=== PATIENT | female | born 1950 | race Two or more races ===

== ENCOUNTER 2025-02-10 13:02 | Emergency (ER) | payer OTHER ==
[~2025-02-10] VITALS: Ht 170.2 cm; Wt 86.0 kg
--- NOTE | 2025-02-10 13:32 | ED.PDOC ---
HPI Comments 74 y.o female with PMHx of FL x2, CHF, HTN, HLD, CVA and Parkinson's, presents to the ED via EMS for a chief complaint of chest pain x last night. Patient reports pain is localized at the center of her chest, radiates to her back and left arm, described as a pressure pain that is constant and rates it a 4/10 on the pain scale. EMS reports giving 324mg ASA en route with no pain relief noted, states holding NTG as patient's BP was on the lower end at 103 systolic. Patient reports pain presented at rest when attempting to go to sleep. Patient denies any nausea, vomiting, diarrhea, fever, or chills. Patient has chronic leg swelling, was seen for this yesterday at [facility] and had blood clot dx r/o. Patient is on Lasix and compliant with the rest of her medication. EMS also noted patient has had a pacemaker replaced 4 times as it kept dislodging. Per patient, pain at this time feels similar to previous FL but is concerned it is her pacemaker malfunction once again. She denies any substance, alcohol or tobacco use. Recent lower back fracture diagnosed one week ago s/p mechanical fall. No new onset of numbness to lower back/extremities. Time Seen by MD: 13:03 Reviewed Notes: Nurses Notes, Inventory Manager Notes, Medications, Allergies Allergies: Coded Allergies: Penicillins (Verified Allergy, Unknown, 02/10/25) Information Source: Patient, Emergency Med Personnel Mode of Arrival: EMS Severity: Moderate Timing: Hours Duration: Since onset Prehospital treatment: 12 Lead EKG, ASA (324mg ), Drawing In Hand Location: Substernal Radiation: Back, Arm (L) Quality: Pressure Onset: At Rest Cardiac Risk Factors: Family History, Hyperlipidemia, HTN PE Risk Factors: None History of: Similar pain in past, [place] Modifying Factors: Nothing Associated Signs and Symptoms: Back Pain Past Medical History PAST MEDICAL HISTORY: CHF, CVA, High Lipids, HTN, FL (2) Past Medical History (Other): Parkinson's and lower back fractures (s/p fall one week ago) Surgical History: 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 History Family History Family History: Family hx of DM, Family hx of heart lex Social History Smoker: Non-Smoker Alcohol: Denies ETOH Use Drugs: Denies Drug Use Lives In: Home Constitutional: denies: chills, diaphoresis, fatigue, fever, malaise, sweats, weakness, others EENTM: denies: blurred vision, double vision, ear bleeding, ear discharge, ear drainage, ear pain, ear ringing, eye pain, eye redness, hearing loss, mouth pain, mouth swelling, nasal discharge, nose bleeding, nose congestion, nose pain, photophobia, tearing, throat pain, throat swelling, voice changes, others Respiratory: reports: cough; denies: hemoptysis, orthopnea, SOB at rest, shortness of breath, SOB with excertion, stridor, wheezing, others Cardiovascular: reports: chest pain, lightheadedness; denies: dizzy spells, diaphoresis, Dyspnea on exertion, edema, irregular heart beat, left arm pain, palpitations, PND, syncope, others Gastrointestinal: denies: abdomen distended, abdominal pain, blood streaked bowels, constipated, diarrhea, dysphagia, difficulty swallowing, hematemesis, melena, nausea, poor appetite, poor fluid intake, rectal bleeding, rectal pain, vomiting, others Genitourinary: denies: abnormal vagina bleeding, burning, dyspareunia, dysuria, flank pain, frequency, hematuria, incontinence, pain, , vagina discharge, urgency, others Neurological: denies: dizziness, fainting, headache, left sided numbness, left sided weakness, numbness, paresthesia, pre-existing deficit, right sided numbness, right sided weakness, seizure, speech problems, tingling, tremors, weakness, others Musculoskeletal: reports: back pain; denies: gout, joint pain, joint swelling, muscle pain, muscle stiffness, neck pain, others Integumetry: denies: bruises, change in color, change in hair/nails, dryness, laceration, lesions, lumps, rash, wounds, others Allergic/Immunocompromised: denies: Difficulty Healing, Frequent Infections, Hives, Itching, others Hematologic/Lymphatic: denies: anemia, blood clots, easy bleeding, easy bruising, swollen glands, others Endocrine: denies: excessive hunger, excessive sweating, excessive thirst, excessive urination, flushing, intolerance to cold, intolerance to heat, unexplained weight gain, unexplained weight loss, others Psychiatric: denies: anxiety, bipolar disorder, depression, hopeless, panic disorder, schizophrenia, sleepless, suicidal, others All Other Systems: Reviewed and Negative Physical Exam General Appearance: Moderate Distress HEENT: Normal ENT Inspection, Pharynx Normal, TMs Normal Neck: Full Range of Motion, Non-Tender, Normal, Normal Inspection Respiratory: Chest Non-Tender, Lungs Clear, No Accessory Muscle Use, No Respiratory Distress, Normal Breath Sounds Cardiovascular: No Edema, No JVD, No Murmur, No Gallop, Normal Peripheral Pulses, Regular Rate/Rhythm Breast Exam: Deferred Gastrointestinal: No Organomegaly, Non Tender, No Pulsatile Mass, Normal Bowel Sounds, Soft Genitalia: Deferred Pelvic: Deferred Rectal: Deferred Extremities: No calf tenderness, Normal capillary refill, Normal inspection, Normal range of motion, Non-tender, No pedal edema Musculoskeletal : Apperance: Normal Neurologic: Alert, gamma ray operator II-XII nml as Tested, No Motor Deficits, Normal Affect, Normal Mood, No Sensory Deficits Cerebellar Function: Normal Reflexes: Normal Skin: Dry, Normal Color, Warm Lymphatic: No Adenopathy EKG EKG : Pulse Rate (adult): 69 [place]: Normal Cardiac Rhythm: NSR Was a procedure done? Was a procedure done?: No CP Differential Dx Differential Diagnosis: Angina, Anxiety / Panic Attack, Electrolyte Disorder, Pacemaker Malfunction Differential Diagnosis: Angina, Chest Wall Pain, Costochondritis, Myocardial I nfarction, Pericarditis X-Ray, Labs, Meds, VS Vital Signs Date Time Temp Pulse Resp B/P (MAP) Pulse Ox O2 Delivery O2 Flow Rate FiO2 02/10/25 16:57 98.9 73 18 152/83 (106) 100 98.9 02/10/25 16:57 73 18 100 Room Air* 0 21 02/10/25 14:10 66 02/10/25 14:04 63 18 135/61 02/10/25 13:33 98.4 78 17 113/62 (79) 96 98.4 02/10/25 13:32 69 02/10/25 13:09 69 Lab Test 02/10/25 15:40 02/10/25 14:35 Range/Units Troponin I High Sensitivity 10 11 </=34 ng/L White Blood Count 8.1 4.4-10.8 10^3/uL Red Blood Count 4.59 4.0-5.20 10^6/uL Hemoglobin 13.9 12.2-16.2 g/dL Hematocrit 42.2 36.0-46.0 % Mean Corpuscular Volume 92.0 80.0-100.0 fL Mean Corpuscular Hemoglobin 30.3 28.0-32.0 pg Mean Corpuscular Hemoglobin Concent 32.9 32.0-36.0 g/dL Red Cell Distribution Width 14.7 H 11.8-14.3 % Platelet Count 191 140-450 10^3/uL Mean Platelet Volume 9.8 6.9-10.8 fL Neutrophils (%) (Auto) 56.3 37.0-80.0 % Lymphocytes (%) (Auto) 30.4 10.0-50.0 % Monocytes (%) (Auto) 9.2 0.0-12.0 % Eosinophils (%) (Auto) 2.8 0.0-7.0 % Basophils (%) (Auto) 1.3 0.0-2.0 % Neutrophils # (Auto) 4.6 1.6-8.6 10 ^3/uL Lymphocytes # (Auto) 2.5 0.4-5.4 10 ^3/uL Monocytes # (Auto) 0.7 0-1.3 10 ^3/uL Eosinophils # (Auto) 0.2 0-0.8 10 ^3/uL Basophils # (Auto) 0.1 0-0.2 10 ^3/uL Nucleated Red Blood Cells 0.0 % Sodium Level 145 136-145 mmol/L Potassium Level 3.5 3.5-5.1 mmol/L Chloride Level 108 H 98-107 mmol/L Carbon Dioxide Level 32 H 20-31 mmol/L Anion Gap 5 5-15 Blood Urea Nitrogen 11 9-23 mg/dL Creatinine 0.93 0.550-1.02 mg/dL Glomerular Filtration Rate Calc 65 >90 mL/min BUN/Creatinine Ratio 11.8 10.0-20.0 Serum Glucose 90 74-106 mg/dL Calcium Level 9.7 8.7-10.4 mg/dL B-Type Natriuretic Peptide 117.71 0-100 pg/mL Current Medications Medications (Trade) Dose Ordered Sig/Sandy Route Start Time Stop Time Status Last Admin Morphine Sulfate 2 mg ONCE ONCE IV 02/10/25 13:15 02/10/25 13:16 DC 02/10/25 14:04 Ondansetron HCl (Zofran) 4 mg ONCE ONCE IV 02/10/25 13:15 02/10/25 13:16 DC 02/10/25 14:03 Acetaminophen/ Hydrocodone Bitart ([place] 10/325MG Tab) 1 tab ONCE ONCE PO 02/10/25 17:15 02/10/25 17:16 DC 02/10/25 17:07 IV Hep-Lock was established The patient was given morphine 2 mg IV push for the pain The patient was given Zofran 4 mg IV push for the nausea The patient was also given [place] now for the pain The patient's CBC is within normal limits. The chemistry panel shows a CO2 of 32 but otherwise within normal limits The BNP is within normal limits At this time, the chest x-ray shows: There is no sign of any abnormalities At this time, we did contact [facility] and they did give us authorization for treatment in the emergency department's The authorization #[id number] A cardiology consult will be obtained Initially we were going to transfer the patient but the patient is now having increased chest pain We are repeating the EKG. Images Reviewed?: Images reviewed and evaluated by me Time of 1ST Reevaluation: 13:24 Reevaluation 1ST: Unchanged Patient Education/Counseling: Diagnosis, Treatment, Prognosis Family Education/Counseling: No Family Present SEPSIS Sepsis Screen Physician Orders Chest Portable (02/10/25 13:09) Heplock Iv (02/10/25 13:09) Drawing In Hand (02/10/25 13:09) Blood Pressure (02/10/25 13:09) Pulse Oximetry (02/10/25 13:09) Electrocardigram (02/10/25 13:09) Electrocardigram (02/10/25 14:09) Electrocardigram (02/10/25 16:09) Imaging Transfer Request (02/10/25 15:45) Vital Signs Date Time Temp Pulse Resp B/P (MAP) Pulse Ox O2 Delivery O2 Flow Rate FiO2 02/10/25 16:57 98.9 73 18 152/83 (106) 100 98.9 02/10/25 16:57 73 18 100 Room Air* 0 21 02/10/25 14:10 66 02/10/25 14:04 63 18 135/61 02/10/25 13:33 98.4 78 17 113/62 (79) 96 98.4 02/10/25 13:32 69 02/10/25 13:09 69 Laboratory Tests Test 02/10/25 14:35 White Blood Count 8.1 10^3/uL (4.4-10.8) Medications Medications Dose Ordered Sig/Sandy Route Start Time Stop Time Status Last Admin Dose Admin Acetaminophen/ Hydrocodone Bitart 1 tab ONCE ONCE PO 02/10/25 17:15 02/10/25 17:16 DC 02/10/25 17:07 Morphine Sulfate 2 mg ONCE ONCE IV 02/10/25 13:15 02/10/25 13:16 DC 02/10/25 14:04 Ondansetron HCl 4 mg ONCE ONCE IV 02/10/25 13:15 02/10/25 13:16 DC 02/10/25 14:03 Departure 1 Departure Time of Disposition: 15:39 Impression: Primary Impression: Acute chest pain Additional Impression: Acute coronary syndrome Disposition: ADMITTED INPATIENT Admit to: [facility] Condition: Fair Critical Care Note Critical Care Time?: Yes (45 min-critical care time only) Stability Stability form required: Yes Unstable for transfer: Telemetry monitoring (Telemetry monitoring required), High BP, ED Physician Assesment (Clinical assesment) Heart Score Heart Score: Heart Score Response (Comments) Value History Moderate Suspicious 1 EKG Normal 0 Age >65 2 Risk Factors >3 or Hx ASHD 2 Troponin Normal limit 0 Total 5 I personally scribed for MARIANGEL WILSON MD ([email or web address]) on 02/10/25 at 13:32. Electronically submitted by Ratna Chahal ([facility]). MARIANGEL WILSON MD Feb 10, 2025 13:32
[2025-02-10] MEDS: ONDANSETRON HCL 4 MG/2 ML VIAL IV ONE ×2 (14:03→20:12)
[2025-02-10] MEDS: MORPHINE SULFATE INJ 2 MG/ml SYRG IV ONE (14:04)
[2025-02-10 14:58] LABS: Anion Gap 5 (5-15); Calcium 9.7 mg/dL (8.7-10.4)
[2025-02-10 15:03] LABS: BUN/Creatinine Ratio 11.8 (10.0-20.0); Blood Urea Nitrogen 11 mg/dL (9-23); Glucose 90 mg/dL (74-106)
[2025-02-10 15:05] LABS: Carbon Dioxide 32 mmol/L (20-31); Chloride 108 mmol/L (98-107); Potassium 3.5 mmol/L (3.5-5.1); Sodium 145 mmol/L (136-145)
[2025-02-10 15:06] LABS: Hematocrit 42.2 % (36.0-46.0); Hemoglobin 13.9 g/dL (12.2-16.2); Mean Corpuscular Hemoglobin 30.3 pg (28.0-32.0); Mean Corpuscular Volume 92.0 fL (80.0-100.0); Nucleated Red Blood Cells % 0.0 %
--- NOTE | 2025-02-10 15:10 | DVH ---
CLINICAL INDICATION: CP FINDINGS: Heart size is normal. No infiltrates or effusions. No bony thoracic abnormalities. IMPRESSION: 1. Normal chest x-ray.
[2025-02-10 16:57] VITALS: PULSE 73; RESP 18; O2SAT 100
[2025-02-10] MEDS: HYDROcodone-ACET 10/325MG TAB PO ONE (17:07)
[2025-02-10 20:08] VITALS: TEMP 98.8; O2SAT 98
[2025-02-10] MEDS: MORPHINE SULFATE 4 MG/ML SYR/VIAL IV ONE (20:13)
[2025-02-10 20:43] VITALS: BP 162/75; PULSE 61; RESP 18
--- NOTE | 2025-02-11 09:08 | ECG ---
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
--- NOTE | 2025-02-11 09:08 | ECG ---
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
== END 2025-02-10 22:01 | disposition left against medical advice (07) ==
LOC: ER 13:02 → EDBD 13:02 → ER 22:01
DX: I24.9 Acute ischemic heart disease, unspecified (principal); R07.89 Other chest pain; I11.0 Hypertensive heart disease with heart failure; I50.9 Heart failure, unspecified; E78.5 Hyperlipidemia, unspecified; I25.2 Old myocardial infarction; G20.A1 Parkinson's disease without dyskinesia, without mention of fluctuations; Z86.73 Personal history of transient ischemic attack (TIA), and cerebral infarction without residual deficits; Z88.0 Allergy status to penicillin; Z88.6 Allergy status to analgesic agent; Z90.49 Acquired absence of other specified parts of digestive tract; Z95.0 Presence of cardiac pacemaker
CPT/HCPCS: 36415; 71045; 80048; 83880; 84484; 85025; 93005; 96374; 96375; 96376; 99291; J2270; J2405